=== PATIENT | female | born 1990 | race American Indian/Alaskan Native ===

== ENCOUNTER 2019-02-10 15:22 | Emergency (ER) | payer SELFPAY ==
--- NOTE | 2019-02-10 15:56 | Event Note ---
ED Screening Note ED Screening Note: pt presents with BLE edema that began a week ago states she has experienced edema in the feet before PMHx epilepsy, HTN, sleep apnea has not taken BP medication in 1 month This initial assessment/diagnostic orders/clinical plan/treatment(s) is/are subject to change based on patients health status, clinical progression and re- assessment by fellow clinical providers in the ED. Further treatment and workup at subsequent clinical providers discretion. Patient/guardian urged not to elope from the ED as their condition may be serious if not clinically assessed and managed. Initial orders include: labs
[2019-02-10 16:20] LABS: Basophils % (Auto) 0.5 % (0.0-1.8); Eosinophils # (Auto) 0.1 K/mm3 (0.0-0.4); Eosinophils % (Auto) 1.2 % (0.0-4.3); Hematocrit 37.1 % (30.3-42.9); Lymphocytes % (Auto) 24.6 % (13.4-35.0); Mean Corpuscular HGB Conc 32 % (30-34); Mean Corpuscular Volume 77 fl (79-97); Monocytes # (Auto) 0.6 K/mm3 (0.0-0.8); Platelet Count 281 K/mm3 (140-440); Red Blood Count 4.84 M/mm3 (3.65-5.03); Red Cell Distribution Width 16.4 % (13.2-15.2)
[2019-02-10 16:30] LABS: Alanine Aminotransferase 13 units/L (7-56); Albumin 3.8 g/dL (3.9-5); BUN/Creatinine Ratio 10; Blood Urea Nitrogen 9 mg/dL (7-17); Calcium 9.2 mg/dL (8.4-10.2); Hemolysis Index 11
[2019-02-10] MEDS ORDERED: LASIX PO ONE (17:18)
[2019-02-10] MEDS ORDERED: CATAPRES PO ONE (17:18)
--- NOTE | 2019-02-10 17:26 | Emergency Department Report ---
ED Extremity Problem HPI - General Chief complaint: Headache Stated complaint: SOB/HEADACHE/SWELLING Time Seen by Provider: 02/10/19 15:55 Source: patient Mode of arrival: Ambulatory Limitations: No Limitations - History of Present Illness Initial comments: Patient is a 28-year-old female who presents to ED complaining of bilateral leg swelling and pain. Patient has a history of hypertension and takes medications but is out of her blood pressure medication and has not taken it for a while. Presents to the for the past couple days she's had swelling to both her legs that is not resolving. She states that this has happened before when she was a bit elevated and it resolved. Patient denies any trauma, bleeding, chest pain, shortness of breath MD Complaint: extremity swelling Severity scale (0 -10): 9 - Related Data Previous Rx's Medication Instructions Recorded Last Taken Type Furosemide [Lasix TAB] 20 mg PO BID #30 tablet 02/10/19 Unknown Rx Ibuprofen [Motrin] 800 mg PO Q8HR #20 tablet 02/10/19 Unknown Rx Lisinopril/Hydrochlorothiazide 1 tab PO QDAY #30 tab 02/10/19 Unknown Rx [Zestoretic 20-12.5 mg] Allergies Allergy/AdvReac Type Severity Reaction Status Date / Time No Known Allergies Allergy Unverified 02/10/19 15:23 ED Review of Systems ROS: Stated complaint: SOB/HEADACHE/SWELLING Other details as noted in HPI Comment: All other systems reviewed and negative ED Past Medical Hx - Past Medical History Previous Medical History?: Yes Hx Hypertension: Yes Hx Seizures: Yes Additional medical history: sleep apnea - Surgical History Past Surgical History?: No - Social History Smoking Status: Never Smoker Substance Use Type: Alcohol - Medications Home Medications: Home Medications Medication Instructions Recorded Confirmed Last Taken Type Furosemide [Lasix TAB] 20 mg PO BID #30 tablet 02/10/19 Unknown Rx Ibuprofen [Motrin] 800 mg PO Q8HR #20 tablet 02/10/19 Unknown Rx Lisinopril/Hydrochlorothiazide 1 tab PO QDAY #30 tab 02/10/19 Unknown Rx [Zestoretic 20-12.5 mg] ED Physical Exam - General Limitations: No Limitations General appearance: alert, in no apparent distress - Head Head exam: Present: atraumatic, normocephalic - Eye Eye exam: Present: normal appearance - ENT ENT exam: Present: mucous membranes moist - Neck Neck exam: Present: normal inspection - Respiratory Respiratory exam: Present: normal lung sounds bilaterally. Absent: respiratory distress - Cardiovascular Cardiovascular Exam: Present: regular rate, normal rhythm. Absent: systolic murmur, diastolic murmur, rubs, gallop - GI/Abdominal GI/Abdominal exam: Present: soft, normal bowel sounds - Extremities Exam Extremities exam: Present: normal inspection, full ROM, pedal edema (bilaterally in lower legs edema, 1+ pitting, nontender to palpation, Homans sign negative). Absent: tenderness, calf tenderness - Expanded Lower Extremity Exam Left Hip exam: Present: full ROM Upper Leg exam: Present: normal inspection Lower Leg exam: Present: full ROM, swelling. Absent: laceration, deformity, erythema Ankle exam: Present: full ROM, swelling. Absent: tenderness Foot/Toe exam: Present: full ROM. Absent: tenderness Neuro vascular tendon exam: Present: no vascular compromise Gait: Positive: observed and normal Right Lower Leg exam: Present: full ROM, swelling. Absent: tenderness, abrasion, deformity Ankle exam: Present: full ROM, swelling. Absent: tenderness Foot/Toe exam: Present: full ROM, swelling. Absent: tenderness, abrasion, laceration Neuro vascular tendon exam: Present: no vascular compromise Gait: Positive: observed and normal - Back Exam Back exam: Present: normal inspection, full ROM - Neurological Exam Neurological exam: Present: alert, oriented X3 - Psychiatric Psychiatric exam: Present: normal affect, normal mood - Skin Skin exam: Present: warm, dry, intact, normal color. Absent: rash ED Course Vital Signs 02/10/19 02/10/19 02/10/19 15:55 17:34 17:35 Temperature 98.1 F Pulse Rate 99 H 84 84 Respiratory 20 Rate Blood Pressure 130/83 Blood Pressure 183/108 130/83 [Right] O2 Sat by Pulse 99 Oximetry ED Medical Decision Making - Lab Data Result diagrams: 02/10/19 16:02 02/10/19 16:02 - Medical Decision Making 28-year-old female presents with leg edema bilaterally All labs within normal limits. Discussed with the patient. Patient was given a dose of furosemide in the ED. Blood pressure returned to normal during ED stay Discussed the patient will refill her blood pressure medication. Discussed about 10 days worth of furosemide. Discussed the patient said compliant with her blood pressure medications. Discussed elevation of the throughout the day. Patient was instructed to follow-up with her primary care physician as referred. Critical care attestation.: If time is entered above; I have spent that time in minutes in the direct care of this critically ill patient, excluding procedure time. ED Disposition Clinical Impression: Bilateral lower extremity edema Disposition: DC- TO HOME OR SELFCARE Is pt being admited?: No Does the pt Need Aspirin: No Condition: Stable Instructions: Leg Edema (ED) Additional Instructions: Make sure to follow up with the primary care physician as discussed. Take all your medications as you've been prescribed. If you have any worsening symptoms or develop new symptoms please return to ED immediately. Prescriptions: Furosemide [Lasix TAB] 20 mg PO BID #30 tablet Ibuprofen [Motrin] 800 mg PO Q8HR #20 tablet Lisinopril/Hydrochlorothiazide [Zestoretic 20-12.5 mg] 1 tab PO QDAY #30 tab Referrals: SHANA SANTORO MD [Primary Care Provider] - 3-5 Days [facility] [Provider Group] - 3-5 Days [facility] [Outside] - 3-5 Days [facility] [Outside] - 3-5 Days Forms: Accompanied Note, Work/School Release Form(ED) Time of Disposition: 18:08
[2019-02-10 17:35] VITALS: BP 130/83
== END 2019-02-10 18:20 | disposition home or self-care (01) ==
LOC: ED 15:22
DX: R60.0 Localized edema (principal); I10 Essential (primary) hypertension; G47.30 Sleep apnea, unspecified; Z79.1 Long term (current) use of non-steroidal anti-inflammatories (NSAID)
CPT/HCPCS: 36415; 80053; 83880; 85025; 99283

== ENCOUNTER 2021-07-24 18:24 | Emergency (ER) | payer SELFPAY ==
[2021-07-24 19:39] VITALS: BP 166/103
== END 2021-07-25 06:53 | disposition left against medical advice (07) ==
LOC: ED 18:24
DX: Z00.00 Encounter for general adult medical examination without abnormal findings (principal); Z53.21 Procedure and treatment not carried out due to patient leaving prior to being seen by health care provider